=== PATIENT | female | born 1970 | race American Indian/Alaskan Native ===

== ENCOUNTER 2018-08-02 10:29 | Emergency (ER) | payer BC ==
[2018-08-02 11:09] LABS: Basophils % (Auto) 0.3 % (0.0-1.8); Eosinophils # (Auto) 0.1 K/mm3 (0.0-0.4); Eosinophils % (Auto) 0.6 % (0.0-4.3); Hematocrit 42.2 % (30.3-42.9); Lymphocytes # (Auto) 3.1 K/mm3 (1.2-5.4); Lymphocytes % (Auto) 33.1 % (13.4-35.0); Mean Corpuscular HGB Conc 33 % (30-34); Mean Corpuscular Volume 84 fl (79-97); Monocytes # (Auto) 0.6 K/mm3 (0.0-0.8); Monocytes % (Auto) 6.8 % (0.0-7.3); Platelet Count 310 K/mm3 (140-440); Red Blood Count 5.02 M/mm3 (3.65-5.03); Red Cell Distribution Width 13.7 % (13.2-15.2)
[2018-08-02] MEDS ORDERED: DILAUDID IV ONE ×3 (11:26→16:11)
[2018-08-02] MEDS ORDERED: ZOFRAN IV ONE ×2 (11:26→15:42)
--- NOTE | 2018-08-02 11:30 | Emergency Department Report ---
HPI - General Chief Complaint: Abdominal Pain Time Seen by Provider: 08/02/18 11:21 - HPI HPI: 47-year-old -[place] female presents to the emergency department with complaint of upper abdominal pain, nausea, vomiting and diarrhea that started this morning. She says that her pain is 10 out of 10 in intensity. It is a sharp spasmodic pain in the patient describes it as "my intestines are squeezing." Patient has a past medical history of asthma, interstitial cystitis, and says that she has had colitis in the past. She has not taken anything for her symptoms prior to arrival. No recent travel or sick contacts at home. ED Past Medical Hx - Past Medical History Previous Medical History?: Yes Hx Asthma: Yes Additional medical history: IC - Social History Smoking Status: Never Smoker Substance Use Type: None - Medications Home Medications: Home Medications Medication Instructions Recorded Confirmed Last Taken Type Metoclopramide [Reglan] 10 mg PO TID PRN #15 tab 08/02/18 Unknown Rx Ondansetron [Zofran Odt] 4 mg PO Q8HR PRN #15 tab.rapdis 08/02/18 Unknown Rx metroNIDAZOLE [Flagyl] 500 mg PO Q12HR #14 tab 08/02/18 Unknown Rx traMADol [Ultram 50 MG tab] 50 mg PO Q6HR PRN #12 tablet 08/02/18 Unknown Rx ED Review of Systems ROS: Stated complaint: ABD PAIN/TINGLING FACE AND HANDS Other details as noted in HPI Comment: All other systems reviewed and negative Constitutional: denies: chills, fever Eyes: denies: eye pain, vision change ENT: denies: ear pain, throat pain Respiratory: denies: cough, shortness of breath Cardiovascular: denies: chest pain, palpitations Gastrointestinal: abdominal pain, nausea, vomiting, diarrhea Genitourinary: denies: urgency, dysuria, discharge Musculoskeletal: denies: back pain, arthralgia Skin: denies: rash, lesions Neurological: denies: headache, weakness Physical Exam - Physical Exam Vital Signs: Vital Signs 08/02/18 10:37 Temperature 98.3 F Pulse Rate 121 H Respiratory 18 Rate Blood Pressure 128/96 Physical Exam: GENERAL: The patient is well-developed well-nourished. HENT: Normocephalic. Atraumatic. Patient has moist mucous membranes. EYES: Extraocular motions are intact. Pupils equal reactive to light bilaterally. NECK: Supple. Trachea is midline. CHEST/LUNGS: Clear to auscultation. There is no respiratory distress noted. HEART/CARDIOVASCULAR: Regular. There is mild to moderate tachycardia. There is no murmur. ABDOMEN: Abdomen is soft. There is upper abdominal tenderness to palpation. No guarding or rebound tenderness. Patient has normal bowel sounds. There is no abdominal distention. SKIN: Skin is warm and dry. NEURO: The patient is awake, alert, and oriented. The patient is cooperative. The patient has no focal neurologic deficits. The patient has normal speech. MUSCULOSKELETAL: There is no tenderness or deformity. There is no evidence of acute injury. ED Course Vital Signs 08/02/18 10:37 Temperature 98.3 F Pulse Rate 121 H Respiratory 18 Rate Blood Pressure 128/96 ED Medical Decision Making - Lab Data Result diagrams: 08/02/18 10:56 08/02/18 10:56 - Radiology Data Radiology results: report reviewed, image reviewed interpreted by me: Abdominal x-ray shows nonspecific nonobstructive bowel gas PROCEDURE: CT ABDOMEN PELVIS W CON TECHNIQUE: CT abdomen and pelvis with intravenous contrast HISTORY: Abd pain COMPARISONS: FINDINGS: Liver spleen and pancreas demonstrate normal aeration Adrenal glands are unremarkable. Kidneys demonstrate symmetric contrast enhancement. Abdominal aorta is unremarkable. No evidence for small bowel distention. No free fluid or free air identified The appendix is identified and is unremarkable The colonic jim have a somewhat edematous appearance. Colon is nondistended IMPRESSION: Edematous appearance of the colonic jim. Nonspecific but may be seen with colitis . This document is electronically signed by Noel Capellan MD., Aug 02 2018 04:42:25 PM ET Transcribed By: [facility] Dictated By: TEODORO CAPELLAN MD Electronically Authenticated By: TEODORO CAPELLAN MD Signed Date/Time: 08/02/18 4124 - Medical Decision Making Patient presents to the emergency department with acute upper abdominal pain, nausea or vomiting. Labs have been unremarkable. She was given multiple doses of pain and nausea medications, IV fluid resuscitation. Abdominal x-ray shows nonspecific nonobstructive bowel gas. CT of the abdomen and pelvis shows possible colitis. She was reevaluated multiple times of hours and is feeling improved. She is able to pass an oral challenge. She will be discharged home with referrals for primary care and gastroenterology. She will be given prescriptions for pain medication, nausea meds and an antibiotic. She will re turn to the ER with any worsening of her symptoms or any acute distress. - Differential Diagnosis supervising, colitis, gastritis, diverticulitis, pancreatitis Critical Care Time: No Critical care attestation.: If time is entered above; I have spent that time in minutes in the direct care of this critically ill patient, excluding procedure time. ED Disposition Clinical Impression: Colitis Nausea & vomiting Qualifiers: Vomiting type: unspecified Vomiting Intractability: non-intractable Qualified Code(s): R11.2 - Nausea with vomiting, unspecified Abdominal pain Qualifiers: Abdominal location: upper abdomen, unspecified Qualified Code(s): R10.10 - Upper abdominal pain, unspecified Disposition: - TO HOME OR SELFCARE Is pt being admited?: No Condition: Stable Instructions: Acute Nausea and Vomiting (ED), Abdominal Pain (ED), Infectious Colitis (ED) Additional Instructions: I have given you a referral for some primary care physicians and clinics in the area. I have also given you a referral for a local drainlayer, Dr. Chavez. Increase your rehydration. Return to the emergency Department with any worsening of your symptoms or any acute distress. You have been prescribed a medication that is sedating and therefore should not be taken prior to driving, working, and responsible for children and in no way should be mixed with alcohol of any quantity. He has been prescribed an antibiotic, Flagyl/metronidazole, that has a very bad side effect if mixed with alcohol of any quantity. Prescriptions: metroNIDAZOLE [Flagyl] 500 mg PO Q12HR #14 tab Metoclopramide [Reglan] 10 mg PO TID PRN #15 tab PRN Reason: Nausea traMADol [Ultram 50 MG tab] 50 mg PO Q6HR PRN #12 tablet PRN Reason: Pain Ondansetron [Zofran Odt] 4 mg PO Q8HR PRN #15 tab.rapdis PRN Reason: Nausea Referrals: URBANO MARIA MD [Staff Physician] - 2-3 Days SHAILESH CHAVEZ MD [Staff Physician] - 2-3 Days [facility] [Outside] - 2-3 Days Forms: Work/School Release Form(ED) Time of Disposition: 18:51
[2018-08-02 11:32] LABS: Bacteria,Urine 2+ /HPF (Negative); Bilirubin,Urine NEG (Negative); Blood,Urine SM (Negative); Color,Urine Amber (Yellow); Mucus,Urine 2+ /HPF
[2018-08-02 11:38] LABS: Alanine Aminotransferase 14 units/L (7-56); Albumin 4.4 g/dL (3.9-5); BUN/Creatinine Ratio 14; Blood Urea Nitrogen 10 mg/dL (7-17); Calcium 9.6 mg/dL (8.4-10.2); Hemolysis Index 8
[2018-08-02] MEDS ORDERED: LEVAQUIN 750MG/150ML 750 MG/150 ML BAG IV ONE (11:40)
--- NOTE | 2018-08-02 12:08 | XRay Report ---
ABDOMEN RADIOGRAPHS INDICATION: Abdominal pain. COMPARISON: None similar at this institution. FINDINGS: Frontal abdominal radiographs demonstrate nonobstructive bowel gas pattern. No focal suspicious calcifications, pneumatosis or pneumoperitoneum. Clear visualized lung bases. Unremarkable bones. Few extrinsic artifacts. CONCLUSION: Normal abdominal radiographs, as described. Thank you for the opportunity to participate in this patient's care.
[2018-08-02] MEDS ORDERED: BENTYL IM ONE (12:39)
[2018-08-02] MEDS ORDERED: NACL 0.9% 1000 ML 1,000 ML IV ONE (14:22)
[2018-08-02 15:02] LABS: HCG Qualitative,Urine Negative (Negative)
--- NOTE | 2018-08-02 16:44 | Cat Scan Report ---
PROCEDURE: CT ABDOMEN PELVIS W CON TECHNIQUE: CT abdomen and pelvis with intravenous contrast HISTORY: Abd pain COMPARISONS: FINDINGS: Liver spleen and pancreas demonstrate normal aeration Adrenal glands are unremarkable. Kidneys demonstrate symmetric contrast enhancement. Abdominal aorta is unremarkable. No evidence for small bowel distention. No free fluid or free air identified The appendix is identified and is unremarkable The colonic jim have a somewhat edematous appearance. Colon is nondistended IMPRESSION: Edematous appearance of the colonic jim. Nonspecific but may be seen with colitis . This document is electronically signed by Noel Brennan MD., Aug 02 2018 04:42:25 PM ET
[2018-08-02 18:19] VITALS: BP 113/72
== END 2018-08-02 19:05 | disposition home or self-care (01) ==
LOC: ED 10:29
DX: K52.9 Noninfective gastroenteritis and colitis, unspecified (principal); J45.909 Unspecified asthma, uncomplicated
CPT/HCPCS: 36415; 74019; 74177; 80053; 81001; 81025; 83690; 85025; 87040; 96361; 96365; 96372; 96375; 96376; 99284; J0500; J1170; J1956; J2405; J7030; Q9967